=== PATIENT | female | born 1940 | race African-American/Black ===

== ENCOUNTER 2021-08-21 05:44 | Inpatient (IN) ==
[2021-08-21] MEDS ORDERED: ceFAZolin 1,000 MG VIAL ONE (06:03)
[2021-08-21] MEDS ORDERED: VANCOMYCIN 1,000 MG VIAL ONE (06:03)
[2021-08-21] MEDS ORDERED: LIDOCAINE 2% 5 ML VIAL ONE (06:11)
[2021-08-21] MEDS ORDERED: fentaNYL 100 MCG/2 ML VIAL ONE (06:11)
[2021-08-21] MEDS ORDERED: MIDAZOLAM 2 MG/2 ML VIAL ONE (06:11)
[2021-08-21] MEDS ORDERED: propofoL 200 MG/20 ML VIAL IV ONE ×2 (06:11→07:31)
[2021-08-21] MEDS ORDERED: ROPIVACAINE 0.5% 30 ML VIAL ONE (06:31)
[2021-08-21] MEDS ORDERED: DEXAMETHASONE 4 MG/1 ML VIAL ONE (06:31)
[2021-08-21] MEDS ORDERED: LIDOCAINE 1% 5 ML VIAL ONE (06:31)
[2021-08-21] MEDS ORDERED: KETAMINE 500 MG/10 ML VIAL ONE (06:38)
[2021-08-21] MEDS ORDERED: ACETAMINOPHEN 500 MG TABLET PO ONE (06:38)
[2021-08-21] MEDS ORDERED: ACETAMINOPHEN 500 MG TABLET ONE (06:42)
[2021-08-21] MEDS ORDERED: LACTATED RINGERS 1,000 ML IV SCH (07:00)
[2021-08-21] MEDS ORDERED: BUPIVACAINE SPINAL 0.75% 2 ML AMP SPINAL ONE (07:31)
[2021-08-21] MEDS ORDERED: TRANEXAMIC ACID 1,000 MG/10 ML VIAL ONE (07:52)
[2021-08-21] MEDS ORDERED: SODIUM CHLORIDE 0.9% 250 ML IV ONE (08:00)
[2021-08-21] MEDS ORDERED: LACTATED RINGERS 1,000 ML IV ONE (08:00)
[2021-08-21] MEDS ORDERED: MORPHINE 2 MG/1 ML SYRINGE IV PRN ×2 (08:55→09:00)
[2021-08-21] MEDS ORDERED: LACTULOSE 20 GM/30 ML UDCUP PO PRN (08:55)
[2021-08-21] MEDS ORDERED: BISACODYL 10 MG SUPP RECTAL PRN (08:55)
[2021-08-21] MEDS ORDERED: diphenhydrAMINE CAP 25 MG CAPSULE PO PRN (08:55)
[2021-08-21] MEDS ORDERED: PROMETHAZINE 25 MG/1 ML VIAL IM PRN (08:55)
[2021-08-21] MEDS ORDERED: ONDANSETRON 4 MG/2 ML VIAL IV PRN (08:55)
[2021-08-21] MEDS ORDERED: TEMAZEPAM 7.5 MG CAPSULE PO PRN (08:55)
[2021-08-21] MEDS ORDERED: POLYVINYL ALCOHOL 1.4% OPH SOLN 15 ML BOTTLE BOTH EYES PRN (08:57)
[2021-08-21] MEDS ORDERED: CYCLOBENZAPRINE 10 MG TABLET PO PRN (08:57)
[2021-08-21] MEDS ORDERED: NON-FORMULARY MEDICATION (Camphor-Methyl Salicyl-Menthol [Salonpas] 3.1-10-6 % Adhesive Pa TOP PRN (08:57)
[2021-08-21] MEDS ORDERED: NON-FORMULARY MEDICATION (Cinnamon Bark [Cinnamon] 500 mg Capsule) PO SCH (09:00)
[2021-08-21] MEDS: ceFAZolin 2,000 MG/50 ML DUPLEX IV SCH ×2 (14:20→21:17)
[2021-08-21] MEDS: BIMATOPROST 0.01% OPH SOLN 2.5 ML BOTTLE BOTH EYES SCH (21:09)
[2021-08-21] MEDS: FONDAPARINUX 2.5 MG/0.5 ML SYRINGE SUBCUT SCH (21:10)
[2021-08-21] MEDS: DOCUSATE SODIUM 100 MG CAPSULE PO SCH (21:10)
[2021-08-22 05:04] LABS: Basophils % 0.3 % (0.0-0.8); Eosinophils # 0.1 10*3/uL (0.0-0.87); Hematocrit 30.7 VOL% (35.7-47.0); Hemoglobin 9.7 GM/DL (12.0-16.0); Immature Granulocytes % 0.3 %; Immature Granulocytes Absolute 0.02 #; Lymphocytes # 1.5 10*3/uL (1.4-4.0); Lymphocytes % 22.4 % (21.3-54.2); Mean Corpuscular HGB Conc 31.6 GM/DL (32-36); Mean Corpuscular Volume 98.1 FL (87-102); Monocytes # 0.7 10*3/uL (0.11-0.8); Monocytes % 9.8 % (1.7-12.7); Neutrophils % 66.2 % (38.7-73.9); Platelet Count 153 T/CUMM (130-400); Red Blood Count 3.13 MC/CUMM (3.8-5.5); Red Cell Distribution Width 12.8 % (9.3-17.3); White Blood Count 6.8 T/CUMM (4-12)
[2021-08-22 05:23] LABS: Osmolality,Calculated 279.5 MOS/KG (273-304); Potassium 3.9 MMOL/L (3.5-5.1)
[2021-08-22] MEDS: FERROUS SULFATE 325 MG TABLET PO SCH (08:05)
[2021-08-22] MEDS: OMEGA 3 ACID ETHYL ESTERS 1 GM CAPSULE PO SCH (08:05)
[2021-08-22] MEDS: ASCORBIC ACID 500 MG TABLET PO SCH (08:05)
[2021-08-22] MEDS: CHOLECALCIFEROL 1,000 UNIT TABLET PO SCH (08:05)
[2021-08-22] MEDS: DOCUSATE SODIUM 100 MG CAPSULE PO SCH ×2 (08:05→20:33)
[2021-08-22] MEDS: MELOXICAM 7.5 MG TABLET PO SCH (08:05)
[2021-08-22] MEDS: CYANOCOBALAMIN 100 MCG TABLET PO SCH (08:06)
[2021-08-22] MEDS ORDERED: ACETAMINOPHEN 325 MG TABLET PO PRN (08:56)
[2021-08-22] MEDS: FONDAPARINUX 2.5 MG/0.5 ML SYRINGE SUBCUT SCH (20:33)
[2021-08-22] MEDS: BIMATOPROST 0.01% OPH SOLN 2.5 ML BOTTLE BOTH EYES SCH (20:35)
[2021-08-23] MEDS: OMEGA 3 ACID ETHYL ESTERS 1 GM CAPSULE PO SCH (08:48)
[2021-08-23] MEDS: MELOXICAM 7.5 MG TABLET PO SCH (08:48)
[2021-08-23] MEDS: CYANOCOBALAMIN 100 MCG TABLET PO SCH (08:48)
[2021-08-23] MEDS: DOCUSATE SODIUM 100 MG CAPSULE PO SCH ×2 (08:48→21:14)
[2021-08-23] MEDS: CHOLECALCIFEROL 1,000 UNIT TABLET PO SCH (08:48)
[2021-08-23] MEDS: ASCORBIC ACID 500 MG TABLET PO SCH (08:49)
[2021-08-23] MEDS: FERROUS SULFATE 325 MG TABLET PO SCH (08:49)
[2021-08-23] MEDS: MAGNESIUM HYDROXIDE SUSP 30 ML UDCUP PO PRN ×2 (08:54→21:14)
[2021-08-23] MEDS: FONDAPARINUX 2.5 MG/0.5 ML SYRINGE SUBCUT SCH (21:14)
[2021-08-23] MEDS: BIMATOPROST 0.01% OPH SOLN 2.5 ML BOTTLE BOTH EYES SCH (21:14)
[2021-08-24 07:32] VITALS: BP 133/41
[2021-08-24] MEDS: ASCORBIC ACID 500 MG TABLET PO SCH (08:30)
[2021-08-24] MEDS: MELOXICAM 7.5 MG TABLET PO SCH (08:30)
[2021-08-24] MEDS: DOCUSATE SODIUM 100 MG CAPSULE PO SCH (08:30)
[2021-08-24] MEDS: CHOLECALCIFEROL 1,000 UNIT TABLET PO SCH (08:31)
[2021-08-24] MEDS: FERROUS SULFATE 325 MG TABLET PO SCH (08:31)
[2021-08-24] MEDS: CYANOCOBALAMIN 100 MCG TABLET PO SCH (08:32)
[2021-08-24] MEDS: OMEGA 3 ACID ETHYL ESTERS 1 GM CAPSULE PO SCH (08:32)
== END 2021-08-24 10:16 | disposition swing bed (61) | DRG 470 ==
LOC: N.SDSINP 05:44 → N.OR 05:44 → N.SDSINP 05:45 → N.3E 08:55
PROVIDERS: ADMIT Orthopaedic Surgery; ATTEND Orthopaedic Surgery